=== PATIENT | male | born 1960 | race Caucasian/White ===

== ENCOUNTER 2017-05-24 01:07 | Observation (INO) | payer OTHER, SELFPAY ==
[2017-05-24 02:54] LABS: Troponin I Less than 0.010 ng/mL (< 0.028)
[2017-05-24 05:55] LABS: #Basophils 0.1 thou/uL (0.0-0.2); #Lymphocytes 1.7 thou/uL (1.20-3.40); #Monocytes 0.5 thou/uL (0.11-0.59); #Neutrophils 4.5 thou/uL (1.40-6.50); %Basophils 0.9 % (0.0-1.0); %Eosinophils 0.5 % (0.0-10.0); %Monocytes 7.8 % (0.0-10.0); %Neutrophils 65.7 % (42.0-75.0); Hemoglobin 13.5 g/dL (14.0-18.0); Mean Corpuscular HGB CONC 32.7 g/dL (32.0-36.0); Mean Corpuscular Hemoglobin 30.8 pg (27.0-31.0); Mean Corpuscular Volume 94.4 fl (80.0-94.0); Mean Platelet Volume 8.4 fL (7.4-10.4); Platelet Count 163 thou/uL (130-400); RBC Distribution Width 12.3 % (11.5-14.5); Red Blood Cell (RBC) Count 4.38 mill/uL (4.70-6.10); White Blood Cell (WBC) Count 6.8 thou/uL (4.8-10.8)
[2017-05-24 06:10] LABS: ALT (SGPT) 46 U/L (8-55); AST (SGOT) 28 U/L (5-34); Albumin 4.1 g/dL (3.5-5.0); Alkaline Phosphatase 98 U/L (40-150); Anion Gap 13 mmol/L (10-20); BUN (Urea Nitrogen) 17 mg/dL (8.4-25.7); Bilirubin, Total 0.7 mg/dL (0.2-1.2); Calc. Creatinine Clearance 0 mL/min (70-130); Calcium 9.3 mg/dL (7.8-10.44); Carbon Dioxide 25 mmol/L (22-29); Chloride 105 mmol/L (98-107); Estimated GFR-MDRD Greater than 90; Globulin 3.1 g/dL (2.4-3.5); Glucose 92 mg/dL (70-105); Potassium 3.8 mmol/L (3.5-5.1); Protein, Total 7.2 g/dL (6.0-8.3); Sodium 139 mmol/L (136-145)
[2017-05-24 06:11] LABS: Troponin I Less than 0.010 ng/mL (< 0.028)
[2017-05-24 06:32] VITALS: BMI 40.7
[2017-05-24] MEDS ORDERED: Acetaminophen 325 MG TAB PO PRN (07:09)
[2017-05-24] MEDS ORDERED: traMADol HCl 50 MG TAB PO PRN (07:09)
[2017-05-24] MEDS ORDERED: hydrALAZINE 20 MG/ML VIAL SLOW IVP PRN (07:09)
[2017-05-24] MEDS ORDERED: Lorazepam 1 MG TAB PO PRN (07:09)
[2017-05-24] MEDS ORDERED: Benzonatate 100 MG CAP PO PRN (07:09)
[2017-05-24] MEDS ORDERED: Bisacodyl 5 MG TAB PO PRN ×2 (07:09)
[2017-05-24] MEDS ORDERED: Loratadine 10 MG TAB PO PRN (07:09)
[2017-05-24] MEDS ORDERED: Ondansetron PF 4 MG/2 ML Vial IVP PRN (07:09)
[2017-05-24] MEDS ORDERED: Senokot 8.6 MG TAB PO PRN ×2 (07:09)
[2017-05-24] MEDS ORDERED: cloNIDine 0.1 MG TAB PO PRN (07:09)
[2017-05-24] MEDS ORDERED: Nitroglycerin 0.4 MG TAB (25 Tab Bottle) SL PRN (07:09)
[2017-05-24] MEDS ORDERED: Diabetic Tussin 200 MG/10 ML UDCUP PO PRN (07:09)
[2017-05-24] MEDS ORDERED: Lisinopril 5 MG TAB PO SCH ×2 (08:45→21:00)
[2017-05-24] MEDS ORDERED: Enoxaparin Sodium 40 MG/0.4 ML SYRINGE SC SCH (09:00)
--- NOTE | 2017-05-24 09:14 | ULT ---
BILATERAL CAROTID DUPLEX ULTRASOUND: DATE: 05/24/17 HISTORY: Syncope. TECHNIQUE: Soares scale ultrasound with color flow and spectral Doppler imaging of the extracranial carotid artery systems performed bilaterally. FINDINGS: There is plaque formation on either side. The peak systolic velocity in the right ICA measures 107 cm/second with an end-diastolic velocity of 37 cm/second and a systolic ratio of 1.05. The peak systolic velocity in the left ICA measures 79 cm/second with an end-diastolic velocity of 29 cm/second and a systolic ratio of 0.78. Flow in both vertebral arteries remains antegrade. IMPRESSION: No evidence of hemodynamically significant stenosis. POS: [facility]
--- NOTE | 2017-05-24 09:41 | HP ---
DATE OF ADMISSION: 05/24/2017 PRIMARY CARE PHYSICIAN: None. The patient has no primary care physician. CHIEF COMPLAINT: Weakness and passing out in near syncope. HISTORY OF PRESENTING ILLNESS: Mr. Timmons is a very pleasant 57-year-old male with past medic al history of hepatitis C who presented to the emergency room with the above-mentioned complaint. Hi story is mainly obtained by the patient himself and electronic medical records have been reviewed. According to Mr. Timmons, he was at work last night. He works nights all the time. He has not been havi ng any recent illnesses except two weeks ago he had some sniffle. He reports that last night while a t work, he felt the need to defecate. He started to walk towards the bathroom, but he felt very weak when he reached there and collapsed. He emphasizes that he never lost consciousness. He managed to continue to defecate and reports that his stools were kind of loose. He was feeling weak again and when he got up off the toilet, he collapsed again. Once again, he denies any loss of consciousness. He denies any similar symptoms in the past. He denies any recent illnesses. He denies having any c hest pain. He was a little short of breath and diaphoretic with this episode, but denies any dizzine ss or lightheadedness or any prodromal symptoms. After coming out of the restroom, he continued to f eel bad and asked his boss to be taken to the emergency room. Upon presentation to the emergency room, he was quite hypertensive with blood pressure of 177/105, bu t otherwise hemodynamically stable. His O2 sat was 96% on room air, respirations 22, pulse of 84, te mperature 98.6. He underwent a general examination and evaluation in the emergency room including a 12-lead EKG in [facility] emergency room which was reportedly normal. He also underwent laboratory exa mination, which was unremarkable including normal cardiac enzymes. A CT scan of the head was also do ne at [facility] which was unremarkable. He reportedly underwent a CT scan of the abdomen and pelvis a s well, which showed 1-2 mm distal right ureteral calculus at the urinary bladder. The patient denie s any hematuria, dysuria, frequency or urgency. He is now being admitted for further evaluation of n ear syncope. PAST MEDICAL HISTORY: 1. History of hepatitis C. The patient reported that it was probably acquired when he got a tattoo about 20 years ago. He is not really bothered to get it followed up and has not recollection of its current status. It was never treated. 2. History of hypertension. 3. History of skin grafts to left groin. 4. Deafness in right ear. 5. History of heart murmur. 6. 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 PSYCHIATRIC HISTORY: No anxiety, no depression. PAST SURGICAL HISTORY: Left knee. SOCIAL HISTORY: No drug, tobacco or alcohol abuse. FAMILY HISTORY: Significant for coronary artery disease in his father, his mother and one of his sib lings. His father at the age of 48 from an VT. ALLERGIES: No known medication allergies. CURRENT MEDICATION: Glucosamine. REVIEW OF SYSTEMS: He feels a little bit better, but still somewhat weak. REVIEW OF SYSTEMS: The following complete review of systems was negative, unless otherwise mentioned in the HPI or below: Constitutional: Weight loss or gain, ability to conduct usual activities. Skin: Rash, itching. Eyes: Double vision, pain. ENT/Mouth: Nose bleeding, neck stiffness, pain, tenderness. Cardiovascular: Palpitations, dyspnea on exertion, orthopnea. Respiratory: Shortness of breath, wheezing, cough, hemoptysis, fever or night sweats. Gastrointestinal: Poor appetite, abdominal pain, heartburn, nausea, vomiting, constipation, or diarr hea. Genitourinary: Urgency, frequency, dysuria, nocturia. Musculoskeletal: Pain, swelling. Neurologic/Psychiatric: Anxiety, depression. Allergy/Immunologic: Skin rash, bleeding tendency. It is negative except for those mentioned in the history and physical. PHYSICAL EXAMINATION: VITAL SIGNS: Upon presentation to [facility], blood pressure 165/115, pulse of 85, resp irations 19, temperature 98.1, and saturating 100% on room air. GENERAL: No acute distress. HEENT: Mucous membrane is moist and pink. No oropharyngeal exudate or erythema. Head is normocepha lic, atraumatic. Pupils are equal and reactive to light and accommodation. Extraocular movements ar e intact. NECK: Supple without any lymphadenopathy, JVD or bruit. CHEST: Clear to auscultation without any wheezing, rales or rhonchi. Rate and rhythm is regular wit hout any murmur, rubs or gallops. ABDOMEN: Soft, nontender, nondistended with positive bowel sounds. EXTREMITIES: Free of any cyanosis, clubbing, or edema. NEUROLOGIC: Examination is nonfocal. He has right-sided facial droop which I reports is chronic. SKIN: Free of any rashes or bruises. Feels warm and dry to touch. PSYCHIATRIC: Normal affect. IMAGING DATA AND LABORATORY DATA: Twelve-lead EKG shows normal sinus rhythm without any ST or T wave changes. CT scan of the brain shows chronic small vessel ischemic changes and encephalomalacia with out any acute infarction. Chest x-ray by my review is negative for any effusion, edema or infiltrate . CBC shows WBCs of 6.8 without any left shift or bandemia, platelet count 163, hemoglobin 13.5. Se rum chemistries are unremarkable. Troponin less than 0.010 x3. CK-MB is normal. Liver enzymes are within normal limits. Plasma alcohol level is less than 10. IMPRESSION AND PLAN: 1. Near syncope. The patient had orthostatics checked since he has been up in the room. His supine blood pressure was 179/94, which dropped down to systolic 159 while sitting up with a diastolic of 1 03. Standing blood pressure was 150/92. He does seem to have some positional changes and orthostati c hypotension. This is on top of underlying essential hypertension. We will start him on lisinopril on a daily basis taken towards the end of the day. We will also obtain a transthoracic echocardiogr am to rule out coronary artery disease or valvular anomalies as the cause of his symptoms. Also [facility] a carotid Doppler ultrasound to rule out stenosis as the cause of his symptoms. He is currently ot [facility] hemodynamically stable. Vasovagal phenomenon can also not be ruled out especially as his sym ptoms were related to defecation. We will also check his hepatitis C status though he seems to be ronic hepatitis C carrier. 2. Hypertension. Start him on lisinopril at the bedtime and monitor for orthostatic changes. Fall precautions. Continue with some IV fluids for orthostatic hypotension. 3. Code status: FULL CODE. 4. Deep venous thrombosis and gastrointestinal prophylaxis. 5. Family history of coronary artery disease. We will check a lipid panel and echocardiogram. Bloo d pressure control is warranted at this time. DISPOSITION: Mr. Timmons is being admitted for near syncopal episode. Further management will depend up on his clinical course and results of various studies as ordered above.
[2017-05-24 11:55] LABS: Hep C IgG Ab Reflex HepC Qnt (NonReactive)
[2017-05-24] MEDS: Sodium Chloride 0.9% 1,000 ML IV SCH ×2 (12:36→13:55)
[2017-05-24 16:16] VITALS: BP 144/79; TEMP 98
--- NOTE | 2017-05-24 20:18 | DIS ---
DATE OF ADMISSION: 05/24/2017 DATE OF DISCHARGE: 05/24/2017 CONDITION AT THE TIME OF DISCHARGE: Stable and improved. DISCHARGE DIAGNOSES: 1. Near syncope, most likely a vasovagal phenomenon versus orthostatic hypotension due to diarrhea a nd dehydration. 2. Viral gastroenteritis, suspected. 3. Essential hypertension undiagnosed still now. 4. History of hepatitis C. PROCEDURES DONE IN THE HOSPITAL: 1. Carotid Doppler ultrasound, which is negative for any hemodynamically significant stenosis. 2. Transthoracic echocardiogram which shows EF of 55-60% without any valvular abnormality. DISCHARGE MEDICATIONS: Lisinopril 5 mg p.o. at bedtime. DISCHARGE FOLLOWUP: The patient is instructed to follow up with [facility] and establish care. BRIEF HOSPITAL COURSE: The patient was admitted earlier this morning by myself for complaints of franklin r syncope at work while defecating. He was admitted on telemetry for further evaluation. Please see admission history and physical dictated by myself. The patient underwent carotid Doppler ultrasound and echocardiogram to rule out cardiac pathology rosalba hayde vascular reason for his near syncope. Both of these studies were normal. The patient started to have 2-3 liquid stools while he was here. He was resuscitated with fluid. He was found to be somew hat orthostatic as per the HPI. He was started on lisinopril, which he tolerated very well. He is i nstructed to take it towards the end of the day to prevent daytime orthostasis changes. He is instru cted to follow up with the primary care physician. At this time, I discussed the discharge plan with the patient, was eager to go home. His symptoms meraz ve largely resolved and he feels much better. Increased fluid intake is advised. For further detail s, please see the admission H and P.
[2017-05-25] MEDS ORDERED: FLU VACC QS2017-18 36 mo. & older 0.5 ML SYRINGE IM ONE (09:00)
[2017-05-26 11:21] LABS: HCV log10 6.668 (.); Hep C PCR-Quant 4660000 IU/mL (.)
== END 2017-05-24 16:45 | disposition home or self-care (01) ==
LOC: ERS 01:07 → 2SW 04:17
PROVIDERS: ADMIT Internal Medicine; ATTEND Internal Medicine
DX: R55 Syncope and collapse (principal); I10 Essential (primary) hypertension; H91.91 Unspecified hearing loss, right ear; G51.0 Bell's palsy; Z79.899 Other long term (current) drug therapy; Z98.890 Other specified postprocedural states; Z86.19 Personal history of other infectious and parasitic diseases; Z87.891 Personal history of nicotine dependence; Z82.49 Family history of ischemic heart disease and other diseases of the circulatory system
CPT/HCPCS: 36415; 80053; 80061; 84484; 85025; 86803; 87522; 93306; 93880; 96372; 99285; G0378; J1650

== ENCOUNTER 2018-09-07 10:38 | Outpatient (CLI) | payer OTHER ==
--- NOTE | 2018-09-07 11:15 | RAD ---
Lumbar spine 4 views flexion and extension HISTORY: Low back pain with radiculopathy. FINDINGS: There are 5 lumbar type vertebrae. Pedicles are intact. Mild rightward convex rotatory scol iotic curvature on the frontal view. Vertebral body heights are within normal limits. Disc space narrowing and minimal degenerative retrolisthesis at the L2-3 level without abnormal trans lational motion upon flexion or extension. Prominent osteophytosis throughout the vertebral bodies and facets. Calcification over the arterial structures. Lower abdominal aorta measures up to 3.1 cm AP diameter o n the lateral view. On the frontal view, small calcifications overlie each renal shadow, measuring up to 0.7 cm greatest diameter at the midportion of the right kidney. IMPRESSION: Degenerative changes lumbar spine as detailed above. No acute osseous abnormalities are d emonstrated. Probable bilateral renal calculi. Atherosclerosis. Fusiform mild dilatation of the lower abdominal aorta.
--- NOTE | 2018-09-07 11:23 | RAD ---
RIGHT HIP 2 VIEWS: HISTORY: Hip pain. FINDINGS: Joint space is fairly well preserved. I do not see any significant osteophytic change. No fractures are identified. IMPRESSION: Essentially unremarkable right hip. POS: [facility]
== END 2018-09-07 10:39 | disposition home or self-care (01) ==
LOC: RAD 10:38
PROVIDERS: ATTEND Specialist
DX: M47.26 Other spondylosis with radiculopathy, lumbar region (principal); M25.551 Pain in right hip; I70.90 Unspecified atherosclerosis; I77.811 Abdominal aortic ectasia
CPT/HCPCS: 72120